=== PATIENT | male | born 1960 | race Caucasian/White ===

== ENCOUNTER 2017-02-10 05:40 | Emergency (ER) | payer BC ==
[2017-02-10] MEDS ORDERED: Tenecteplase 50 MG Kit ONE (05:42)
[2017-02-10] MEDS ORDERED: Morphine 4 MG/ML Syringe ONE (05:52)
[2017-02-10] MEDS ORDERED: Morphine 4 MG/ML Syringe IVPUSH ONE (05:58)
[2017-02-10] MEDS ORDERED: Clopidogrel 75 MG Tab PO ONE (06:09)
[2017-02-10 06:16] LABS: CHLORIDE,CL 101 mEq/L (98-106); SODIUM,NA 138 mEq/L (136-145)
[2017-02-10] MEDS ORDERED: Metoprolol Tartrate 25 MG Tab PO ONE (06:32)
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
== END 2017-02-10 06:52 ==
LOC: CC.ED 05:40
DX: I21.3 ST elevation (STEMI) myocardial infarction of unspecified site (principal); I10 Essential (primary) hypertension; I25.10 Atherosclerotic heart disease of native coronary artery without angina pectoris; F17.210 Nicotine dependence, cigarettes, uncomplicated; Z95.5 Presence of coronary angioplasty implant and graft
CPT/HCPCS: 36415; 71010; 80053; 82550; 83615; 84484; 85025; 85610; 85730; 93005; 96374; 96375; 99285; A9270; J2270; J3101; 92977